=== PATIENT | male | born 2000 | race Caucasian/White ===

== ENCOUNTER 2023-04-02 15:42 | Emergency (ER) | payer OTHER ==
[~2023-04-02] VITALS: Ht 180.3 cm; Wt 54.4 kg
[2023-04-02 16:23] VITALS: BP_SYST 105; PULSE 102; RESP 18; TEMP 100.2; O2SAT 96
[2023-04-02] MEDS ORDERED: KETOROLAC TROMETHAMINE 15 MG VIAL IM ONE (17:15)
[2023-04-02 17:24] LABS: COVID19 ANTIGEN SOFIA FIA NEGATIVE (NEGATIVE)
[2023-04-02 17:25] LABS: INFLUENZA TYPE B NEGATIVE (NEGATIVE)
[2023-04-02 17:29] LABS: INFLUENZA TYPE A POSITIVE (NEGATIVE)
[2023-04-02] MEDS ORDERED: FLUT16SP16 NS (17:35)
[2023-04-02] MEDS ORDERED: BENZ100C92 PO (17:35)
[2023-04-02 18:06] VITALS: BP_SYST 105; PULSE 102; RESP 18; TEMP 100.2; O2SAT 96
== END 2023-04-02 18:06 | disposition home or self-care (01) ==
LOC: SED 15:42
DX: J10.1 Influenza due to other identified influenza virus with other respiratory manifestations (principal); B34.9 Viral infection, unspecified; R50.9 Fever, unspecified; R05.9 Cough, unspecified; R51.9 Headache, unspecified; Z79.899 Other long term (current) drug therapy; Z20.822 Contact with and (suspected) exposure to COVID-19
CPT/HCPCS: 99283; 87426; 36415; 96372; 87804 ×2; J1885